=== PATIENT | female | born 1940 | race Caucasian/White ===

== ENCOUNTER 2022-09-20 10:29 | Inpatient (IN) | payer MEDICARE, BC ==
[2022-09-20] MEDS: Sodium Chloride 0.9% 1,000 ML IV SCH ×2 (10:40→17:52)
[2022-09-20] MEDS ORDERED: Ondansetron 4 MG/2 ML SDV IVPUSH ONE (10:43)
[2022-09-20 11:32] LABS: ANION GAP 15.6 mmol/L (5-15)
[2022-09-20] MEDS ORDERED: REMDESIVIR 200 MG in Sodium Chloride 0.9% 250 ML IV ONE (12:39)
[2022-09-20] MEDS ORDERED: Sodium Chloride 0.9% 1,000 ML IV SCH (13:00)
[2022-09-20] MEDS ORDERED: Magnesium Oxide 400 MG Tab PO ONE (13:07)
[2022-09-20] MEDS: Albuterol HFA 18 Gm Inhaler INH SCH ×3 (15:14→20:14)
[2022-09-20] MEDS: dexAMETHasone 2 MG, dexAMETHasone 4 MG PO SCH ×2 (15:18)
[2022-09-20] MEDS: Nystatin Crm 30 GM Tube TOP SCH ×2 (15:19→20:14)
[2022-09-20] MEDS: Ondansetron 4 MG/2 ML SDV IV PRN ×2 (16:25→22:28)
[2022-09-20] MEDS: Enoxaparin 40 MG/0.4 ML Syringe SUBCUT SCH (20:14)
[2022-09-20] MEDS: Acetaminophen 325 MG Tab PO PRN (22:40)
[2022-09-21] MEDS: Levothyroxine 88 MCG Tab PO SCH (06:02)
[2022-09-21] MEDS: Ondansetron 4 MG/2 ML SDV IV PRN (08:39)
[2022-09-21] MEDS: Losartan 25 MG Tab PO SCH (08:40)
[2022-09-21] MEDS: dexAMETHasone 2 MG, dexAMETHasone 4 MG PO SCH ×2 (08:40)
[2022-09-21] MEDS: Nystatin Crm 30 GM Tube TOP SCH ×2 (08:41→20:18)
[2022-09-21] MEDS: Albuterol HFA 18 Gm Inhaler INH SCH ×4 (08:42→20:19)
[2022-09-21 08:43] LABS: ANION GAP 13.1 mmol/L (5-15)
[2022-09-21] MEDS: Sodium Chloride 0.9% 1,000 ML IV SCH (10:11)
[2022-09-21] MEDS: REMDESIVIR 100 MG in Sodium Chloride 0.9% 100 ML IV SCH (12:37)
[2022-09-21] MEDS: Enoxaparin 40 MG/0.4 ML Syringe SUBCUT SCH (20:17)
[2022-09-21] MEDS: Acetaminophen 325 MG Tab PO PRN (23:28)
[2022-09-22] MEDS: Sodium Chloride 0.9% 1,000 ML IV SCH (05:54)
[2022-09-22] MEDS: Levothyroxine 88 MCG Tab PO SCH (06:00)
[2022-09-22] MEDS ORDERED: Bisacodyl 5 MG Tab PO PRN (08:12)
[2022-09-22] MEDS: dexAMETHasone 2 MG, dexAMETHasone 4 MG PO SCH ×2 (08:23)
[2022-09-22] MEDS: Ondansetron 4 MG/2 ML SDV IV PRN (08:23)
[2022-09-22] MEDS: Losartan 25 MG Tab PO SCH (08:24)
[2022-09-22] MEDS: Acetaminophen 325 MG Tab PO PRN ×2 (08:29→20:56)
[2022-09-22] MEDS: Nystatin Crm 30 GM Tube TOP SCH ×2 (08:36→20:58)
[2022-09-22] MEDS: Albuterol HFA 18 Gm Inhaler INH SCH ×4 (08:36→20:58)
[2022-09-22] MEDS ORDERED: Furosemide 20 MG/2 ML VIAL IV ONE (09:45)
[2022-09-22] MEDS: REMDESIVIR 100 MG in Sodium Chloride 0.9% 100 ML IV SCH (13:32)
[2022-09-22] MEDS: Omeprazole 20 MG Cap.CR PO SCH (16:37)
[2022-09-22] MEDS: Enoxaparin 40 MG/0.4 ML Syringe SUBCUT SCH (20:55)
[2022-09-23] MEDS: Acetaminophen 325 MG Tab PO PRN ×3 (03:16→20:41)
[2022-09-23] MEDS: Omeprazole 20 MG Cap.CR PO SCH ×2 (06:16→18:27)
[2022-09-23] MEDS: Levothyroxine 88 MCG Tab PO SCH (06:16)
[2022-09-23 07:22] LABS: ANION GAP 11.6 mmol/L (5-15)
[2022-09-23] MEDS: Losartan 25 MG Tab PO SCH (09:26)
[2022-09-23] MEDS: dexAMETHasone 2 MG, dexAMETHasone 4 MG PO SCH ×2 (09:26)
[2022-09-23] MEDS: Albuterol HFA 18 Gm Inhaler INH SCH ×4 (09:27→20:45)
[2022-09-23] MEDS: Nystatin Crm 30 GM Tube TOP SCH ×2 (09:27→20:44)
[2022-09-23] MEDS: REMDESIVIR 100 MG in Sodium Chloride 0.9% 100 ML IV SCH (12:29)
[2022-09-23] MEDS: Enoxaparin 40 MG/0.4 ML Syringe SUBCUT SCH (20:41)
[2022-09-23] MEDS: Sodium Chloride 0.9% 10 ML Syringe FLUSH PRN (20:43)
[2022-09-24] MEDS: Levothyroxine 88 MCG Tab PO SCH (06:05)
[2022-09-24] MEDS: Acetaminophen 325 MG Tab PO PRN ×3 (06:07→20:33)
[2022-09-24] MEDS: Omeprazole 20 MG Cap.CR PO SCH ×2 (06:10→17:02)
[2022-09-24 07:25] LABS: CHLORIDE,CL 103 mmol/L (98-107); SODIUM,NA 140 mmol/L (136-145)
[2022-09-24 07:30] LABS: ANION GAP 10.7 mmol/L (5-15); ESTIMATED GFR 86 mL/min (>=60)
[2022-09-24] MEDS: dexAMETHasone 2 MG, dexAMETHasone 4 MG PO SCH ×2 (09:29)
[2022-09-24] MEDS: Polyethylene Glycol 3350 Powder 17 GM Packet PO SCH (09:29)
[2022-09-24] MEDS: Losartan 25 MG Tab PO SCH (09:31)
[2022-09-24] MEDS: Nystatin Crm 30 GM Tube TOP SCH ×2 (09:34→20:35)
[2022-09-24] MEDS: Albuterol HFA 18 Gm Inhaler INH SCH ×4 (09:35→20:35)
[2022-09-24] MEDS: REMDESIVIR 100 MG in Sodium Chloride 0.9% 100 ML IV SCH (12:37)
[2022-09-24] MEDS: Enoxaparin 40 MG/0.4 ML Syringe SUBCUT SCH (20:33)
[2022-09-24] MEDS: Sodium Chloride 0.9% 10 ML Syringe FLUSH PRN (20:33)
[2022-09-25] MEDS: Levothyroxine 88 MCG Tab PO SCH (06:05)
[2022-09-25] MEDS: Omeprazole 20 MG Cap.CR PO SCH (06:05)
[2022-09-25 07:40] LABS: ANION GAP 12.9 mmol/L (5-15)
[2022-09-25] MEDS: dexAMETHasone 2 MG, dexAMETHasone 4 MG PO SCH ×2 (08:08)
[2022-09-25] MEDS: Losartan 25 MG Tab PO SCH (08:08)
[2022-09-25] MEDS: Polyethylene Glycol 3350 Powder 17 GM Packet PO SCH (08:09)
[2022-09-25] MEDS: Nystatin Crm 30 GM Tube TOP SCH (08:12)
[2022-09-25] MEDS: Albuterol HFA 18 Gm Inhaler INH SCH (08:13)
[2022-09-25] MEDS: Acetaminophen 325 MG Tab PO PRN (08:20)
== END 2022-09-25 12:09 | disposition swing bed (61) | DRG 177 ==
LOC: VM.ED 10:29 → VM.MS 12:04
PROVIDERS: ADMIT Family Medicine; ATTEND Family Medicine
PROC: XW033E5 Introduction of Remdesivir Anti-infective into Peripheral Vein, Percutaneous Approach, New Technology Group 5 (ICD-10-PCS; principal; 2022-09-20)
PROC: 3E0DX3Z Introduction of Anti-inflammatory into Mouth and Pharynx, External Approach (ICD-10-PCS; 2022-09-20)
DX: U07.1 COVID-19 (principal); J12.9 Viral pneumonia, unspecified; J18.9 Pneumonia, unspecified organism; J96.01 Acute respiratory failure with hypoxia; I10 Essential (primary) hypertension; E03.9 Hypothyroidism, unspecified; Z66 Do not resuscitate; E83.42 Hypomagnesemia; M79.10 Myalgia, unspecified site; K59.00 Constipation, unspecified; L30.9 Dermatitis, unspecified; J44.9 Chronic obstructive pulmonary disease, unspecified; F41.9 Anxiety disorder, unspecified; E78.00 Pure hypercholesterolemia, unspecified; M19.90 Unspecified osteoarthritis, unspecified site; Z88.8 Allergy status to other drugs, medicaments and biological substances; Z79.890 Hormone replacement therapy; Z98.1 Arthrodesis status; Z98.41 Cataract extraction status, right eye; Z98.42 Cataract extraction status, left eye; Z90.710 Acquired absence of both cervix and uterus; Z90.89 Acquired absence of other organs; Z87.891 Personal history of nicotine dependence
CPT/HCPCS: 36415; 80053; 81001; 81003; 82550; 83605; 83615; 83735; 84484; 85025; 85379; 86140; 87086; 95851-GO; 96374; 97110-GP; 97116-GP; 97162-GP; 97165-GO; 97530-GP; 97535-GO; 99284; 99285-25; A9270-GY; J1650; J1940; J2405; J3490; J7030; J7050; J8540

== ENCOUNTER 2022-09-24 08:13 | Inpatient (IN) | payer MEDICARE, BC ==
[2022-09-25] MEDS ORDERED: Albuterol HFA 18 Gm Inhaler INH PRN (13:15)
[2022-09-25] MEDS: Omeprazole 20 MG Cap.CR PO SCH (19:22)
[2022-09-25] MEDS: Acetaminophen 325 MG Tab PO PRN (20:46)
[2022-09-26] MEDS: Omeprazole 20 MG Cap.CR PO SCH ×2 (05:59→18:20)
[2022-09-26] MEDS: Acetaminophen 325 MG Tab PO PRN ×2 (06:03→20:42)
[2022-09-26] MEDS: Losartan 25 MG Tab PO SCH (10:44)
[2022-09-26] MEDS: dexAMETHasone 2 MG, dexAMETHasone 4 MG PO SCH ×2 (10:44)
[2022-09-26] MEDS: Enoxaparin 40 MG/0.4 ML Syringe SUBCUT SCH (10:45)
[2022-09-26] MEDS: Levothyroxine 88 MCG Tab PO SCH (10:45)
[2022-09-26] MEDS: Polyethylene Glycol 3350 Powder 17 GM Packet PO SCH (10:46)
[2022-09-27] MEDS: Acetaminophen 325 MG Tab PO PRN ×3 (06:10→21:00)
[2022-09-27] MEDS: Omeprazole 20 MG Cap.CR PO SCH ×2 (06:10→17:14)
[2022-09-27] MEDS: Losartan 25 MG Tab PO SCH (08:36)
[2022-09-27] MEDS: dexAMETHasone 2 MG, dexAMETHasone 4 MG PO SCH ×2 (08:37)
[2022-09-27] MEDS: Polyethylene Glycol 3350 Powder 17 GM Packet PO SCH (08:37)
[2022-09-27] MEDS: Levothyroxine 88 MCG Tab PO SCH (08:37)
[2022-09-27] MEDS: Enoxaparin 40 MG/0.4 ML Syringe SUBCUT SCH (08:44)
[2022-09-28] MEDS: Omeprazole 20 MG Cap.CR PO SCH ×2 (06:06→17:57)
[2022-09-28] MEDS: Acetaminophen 325 MG Tab PO PRN ×2 (06:06→20:24)
[2022-09-28] MEDS: Levothyroxine 88 MCG Tab PO SCH (09:15)
[2022-09-28] MEDS: dexAMETHasone 2 MG, dexAMETHasone 4 MG PO SCH ×2 (09:16)
[2022-09-28] MEDS: Losartan 25 MG Tab PO SCH (09:16)
[2022-09-28] MEDS: Enoxaparin 40 MG/0.4 ML Syringe SUBCUT SCH (09:16)
[2022-09-28] MEDS: Polyethylene Glycol 3350 Powder 17 GM Packet PO SCH (09:17)
[2022-09-29] MEDS: Omeprazole 20 MG Cap.CR PO SCH (06:31)
[2022-09-29] MEDS: Enoxaparin 40 MG/0.4 ML Syringe SUBCUT SCH (08:46)
[2022-09-29] MEDS: Polyethylene Glycol 3350 Powder 17 GM Packet PO SCH (08:46)
[2022-09-29] MEDS: dexAMETHasone 2 MG, dexAMETHasone 4 MG PO SCH ×2 (08:48)
[2022-09-29] MEDS: Levothyroxine 88 MCG Tab PO SCH (08:49)
[2022-09-29] MEDS: Losartan 25 MG Tab PO SCH (08:50)
== END 2022-09-29 14:30 | disposition home health service (06) | DRG 947 ==
LOC: VM.MS 09-25 12:15
PROVIDERS: ADMIT Family Medicine; ATTEND Family Medicine
DX: R53.1 Weakness (principal); J96.01 Acute respiratory failure with hypoxia; I10 Essential (primary) hypertension; E03.9 Hypothyroidism, unspecified; J44.9 Chronic obstructive pulmonary disease, unspecified; M19.90 Unspecified osteoarthritis, unspecified site; K59.00 Constipation, unspecified; Z79.890 Hormone replacement therapy; Z79.899 Other long term (current) drug therapy; U09.9 Post COVID-19 condition, unspecified
CPT/HCPCS: 95851-GO; 97110-GP; 97116-GP; 97129-GO; 97164-GP; 97535-GO; A9270-GY; J1650; J8540

== ENCOUNTER 2022-10-01 17:51 | Emergency (ER) | payer MEDICARE, BC | END 2022-10-01 18:21 | disposition home or self-care (01) | LOC: VM.ED 17:51 | DX: U07.1 COVID-19 (principal); J44.9 Chronic obstructive pulmonary disease, unspecified; Z88.8 Allergy status to other drugs, medicaments and biological substances; Z79.899 Other long term (current) drug therapy | CPT/HCPCS: 99283 ==

== ENCOUNTER 2024-08-14 23:50 | Emergency (ER) | payer MEDICARE, BC ==
[2024-08-14] MEDS ORDERED: Sodium Chloride 0.9% 10 ML Syringe FLUSH PRN (23:56)
[2024-08-15] MEDS: Ondansetron 4 MG/2 ML SDV IVPUSH ONE (00:05)
[2024-08-15] MEDS: Lactated Ringers 1,000 ML IV ONE ×2 (00:05→01:54)
[2024-08-15 00:07] LABS: BASOPHILS PERCENT AUTO 0.2 % (0.2-1.2); EOSINOPHILS PERCENT AUTO 0.1 % (0.0-4.0); HEMATOCRIT 49.5 % (33.0-47.0); HEMOGLOBIN 16.4 g/dL (12.0-16.0); IMMATURE GRAN ABSOLUTE AUTO 0.02 x10^3/uL (0.00-0.07); LYMPHOCYTES ABSOLUTE AUTO 0.7 x10^3/uL (1.0-4.8); LYMPHOCYTES PERCENT AUTO 4.7 % (25.0-50.0); MEAN CORPUSCULAR HEMOGLOBIN 29.4 pg (26.0-32.0); MEAN CORPUSCULAR HGB CONC 33.1 g/dL (32.0-36.0); MEAN CORPUSCULAR VOLUME 88.9 fL (78.0-93.0); MONOCYTES PERCENT AUTO 6.5 % (2.0-11.0); NEUTROPHILS ABSOLUTE AUTO 13.1 x10^3/uL (1.8-7.7); NEUTROPHILS PERCENT AUTO 88.4 % (50.0-80.0); PLATELET COUNT,PLT 164 x10^3/uL (130-400); RED BLOOD CELL COUNT 5.57 x10^6/uL (4.00-5.50); WHITE BLOOD CELL COUNT,WBC 14.9 x10^3/uL (4.0-10.0)
[2024-08-15 00:20] LABS: HCO3 VENOUS,POC 26 mmol/L (22-29); O2 SATURATION VENOUS,POC 61 %; PCO2 VENOUS,POC 46 mmHg (41-51); PH VENOUS,POC 7.36 pH (7.32-7.43); PO2 VENOUS,POC 34 mmHg
[2024-08-15 00:29] LABS: LACTIC ACID 2.4 mmol/L (0.4-2.0)
[2024-08-15] MEDS: HYDROmorphone 0.5 MG/0.5 ML Syringe IVPUSH ONE (00:31)
[2024-08-15 00:36] LABS: PROTHROMBIN TIME 10.5 SEC (8.9-11.5); PTT,PARTIAL THROMBOPLSTIN TIME 26.8 SEC (21.9-33.8)
[2024-08-15 00:37] LABS: A/G RATIO 1.27; ALANINE AMINOTRANSFERASE,ALT 54 U/L (14-59); ALBUMIN 4.2 g/dL (3.4-5.0); ALKALINE PHOSPHATASE 102 U/L (46-116); ASPARTATE AMNIOTRANSFERASE,AST 177 U/L (15-37); BLOOD UREA NITROGEN,BUN 19 mg/dL (7-18); C-REACTIVE PROTEIN 0.87 mg/dL (<=0.50); CALCIUM 9.5 mg/dL (8.5-10.1); CARBON DIOXIDE,CO2 28 mmol/L (21-32); CHLORIDE,CL 104 mmol/L (98-107); CREATININE 1.1 mg/dL (0.55-1.02); EST CRCL DRUG DOSING (CG) 33.65 mL/min; GLUCOSE RANDOM 134 mg/dL (70-99); MAGNESIUM 1.7 mg/dL (1.8-2.4); POTASSIUM,K 3.9 mmol/L (3.5-5.1); PROTEIN TOTAL,TP 7.5 g/dL (6.4-8.2); SODIUM,NA 142 mmol/L (136-145); TSH ULTRASENSITIVE 1.108 uIU/mL (0.358-3.74)
[2024-08-15 00:39] LABS: ANION GAP 13.9 mmol/L (5-15); ESTIMATED GFR 49 mL/min (>=60); ETHANOL BLOOD MEDICAL < 3 mg/dL (0-3)
[2024-08-15 01:05] LABS: CREATINE KINASE,CK 8380 U/L (26-192)
[2024-08-15 01:11] LABS: AMPHETAMINES SCREEN, URINE NEGATIVE (NEGATIVE); BARBITURATE SCREEN,URINE NEGATIVE (NEGATIVE); BENZODIAZEPINES SCREEN,URINE NEGATIVE (NEGATIVE); BUPRENORPHINE SCREEN,URINE NEGATIVE (NEGATIVE); COCAINE METABOLITES,URINE NEGATIVE (NEGATIVE); METHADONE SCREEN, URINE NEGATIVE (NEGATIVE); METHAMPHETAMINE SCREEN, URINE NEGATIVE (NEGATIVE); OXYCODONE SCREEN,URINE NEGATIVE (NEGATIVE); PCP SCREEN,URINE NEGATIVE (NEGATIVE); THC SCREEN,URINE 50 NG/ML NEGATIVE (NEGATIVE)
[2024-08-15] MEDS: cefTRIAXone 1 GM Vial IVPUSH ONE (01:11)
[2024-08-15 01:15] LABS: BILIRUBIN,URINE SMALL (NEGATIVE); COLOR,URINE YELLOW (YELLOW); GLUCOSE,URINE NEGATIVE (NEGATIVE); KETONES,URINE 40 mg/dL (NEGATIVE); LEUKOCYTE ESTERASE,URINE NEGATIVE (NEGATIVE); NITRITE,URINE NEGATIVE (NEGATIVE); OCCULT BLOOD,URINE MODERATE (NEGATIVE); PH,URINE 6.5 (5.0-8.0); PROTEIN,URINE >=300 mg/dL (NEGATIVE); UROBILINOGEN,URINE 0.2 EU/dL (0.2)
[2024-08-15 01:16] LABS: APPEARANCE,URINE SLIGHTLY CLOUDY (CLEAR); BACTERIA,URINE OCCASIONAL /HPF (NOT SEEN); GRANULAR CASTS,URINE FEW; HYALINE CASTS,URINE FEW; MUCUS,URINE FEW /LPF (NOT SEEN); RBC,URINE 20-30 /HPF (NOT SEEN); SQUAMOUS EPITHELIAL CELLS,UR FEW /HPF (NOT SEEN); WBC,URINE 0-5 /HPF (NOT SEEN)
[2024-08-15] MEDS: Aspirin 81 MG Tab.Chew PO ONE (01:54)
[2024-08-15] MEDS: Azithromycin 500 MG in Sodium Chloride 0.9% 250 ML IV ONE (02:16)
[2024-08-15] MEDS: Heparin Sodium/0.45% NaCl 25,000 UNITS/500 ML BAG IV STA (02:26)
[2024-08-15] MEDS: Heparin Sodium 5,000 Units/ML Vial IVPUSH ONE (02:26)
== END 2024-08-15 03:00 | disposition short-term general hospital (02) ==
LOC: VM.ED 23:50
DX: I21.4 Non-ST elevation (NSTEMI) myocardial infarction (principal); J18.9 Pneumonia, unspecified organism; S00.81XA Abrasion of other part of head, initial encounter; M62.82 Rhabdomyolysis; E78.00 Pure hypercholesterolemia, unspecified; E03.9 Hypothyroidism, unspecified; I10 Essential (primary) hypertension; J44.9 Chronic obstructive pulmonary disease, unspecified; Z88.8 Allergy status to other drugs, medicaments and biological substances; Z79.890 Hormone replacement therapy; Z79.899 Other long term (current) drug therapy; W19.XXXA Unspecified fall, initial encounter
CPT/HCPCS: 70450; 71045; 72020; 72125; 72170; 80053; 80305-QW; 80307; 81001; 82140; 82550; 82803; 83605; 83735; 84443; 84484; 85025; 85610; 85730; 86140; 87040; 93005; 93010; 96361; 96365; 96368; 96375; 99284; 99285-25; A9270-GY; J0456; J0696; J1170; J1644; J2405; J7050; J7120

== ENCOUNTER 2025-04-26 17:19 | Emergency (ER) | payer MEDICARE, BC ==
[2025-04-26 17:49] LABS: BASOPHILS PERCENT AUTO 0.5 % (0.2-1.2); EOSINOPHILS ABSOLUTE AUTO 0.4 x10^3/uL (0.0-0.5); EOSINOPHILS PERCENT AUTO 5.4 % (0.0-4.0); HEMATOCRIT 45.9 % (33.0-47.0); IMMATURE GRAN ABSOLUTE AUTO 0.01 x10^3/uL (0.00-0.07); LYMPHOCYTES ABSOLUTE AUTO 1.6 x10^3/uL (1.0-4.8); LYMPHOCYTES PERCENT AUTO 24.8 % (25.0-50.0); MEAN CORPUSCULAR HEMOGLOBIN 29.2 pg (26.0-32.0); MEAN CORPUSCULAR HGB CONC 32.7 g/dL (32.0-36.0); MEAN CORPUSCULAR VOLUME 89.5 fL (78.0-93.0); MONOCYTES ABSOLUTE AUTO 0.6 x10^3/uL (0.0-0.8); MONOCYTES PERCENT AUTO 9.3 % (2.0-11.0); NEUTROPHILS ABSOLUTE AUTO 3.9 x10^3/uL (1.8-7.7); NEUTROPHILS PERCENT AUTO 59.8 % (50.0-80.0); PLATELET COUNT,PLT 162 x10^3/uL (130-400); RED BLOOD CELL COUNT 5.13 x10^6/uL (4.00-5.50); WHITE BLOOD CELL COUNT,WBC 6.5 x10^3/uL (4.0-10.0)
[2025-04-26] MEDS: Sodium Chloride 0.9% 500 ML IV ONE (17:52)
[2025-04-26] MEDS: Meclizine 25 MG Tab PO ONE (17:53)
[2025-04-26 18:00] LABS: A/G RATIO 1.33; ALANINE AMINOTRANSFERASE,ALT 18 U/L (14-59); ALKALINE PHOSPHATASE 109 U/L (46-116); ASPARTATE AMNIOTRANSFERASE,AST 20 U/L (15-37); BILIRUBIN TOTAL 0.7 mg/dL (0.2-1.0); BLOOD UREA NITROGEN,BUN 17 mg/dL (7-18); CALCIUM 9.1 mg/dL (8.5-10.1); CARBON DIOXIDE,CO2 29 mmol/L (21-32); CHLORIDE,CL 103 mmol/L (98-107); CREATININE 0.9 mg/dL (0.55-1.02); GLUCOSE RANDOM 107 mg/dL (70-99); POTASSIUM,K 3.5 mmol/L (3.5-5.1); SODIUM,NA 143 mmol/L (136-145)
[2025-04-26 18:02] LABS: ANION GAP 14.5 mmol/L (5-15); ESTIMATED GFR 63 mL/min (>=60)
[2025-04-26] MEDS: diazePAM 10 MG/2 ML Syringe IVPUSH ONE (18:27)
[2025-04-26] MEDS ORDERED: diazePAM 10 MG/2 ML Syringe IV PRN (19:34)
[2025-04-26] MEDS: Ondansetron 4 MG/2 ML SDV IVPUSH ONE (20:05)
[2025-04-26] MEDS: Take Home: Ondansetron 4 MG Tab.DIS, 5 Tab Pack PO ONE (20:06)
== END 2025-04-26 20:05 | disposition home or self-care (01) ==
LOC: VM.ED 17:19
DX: H81.10 Benign paroxysmal vertigo, unspecified ear (principal); E78.00 Pure hypercholesterolemia, unspecified; J44.9 Chronic obstructive pulmonary disease, unspecified; E03.9 Hypothyroidism, unspecified; Z79.899 Other long term (current) drug therapy; Z79.890 Hormone replacement therapy; Z88.8 Allergy status to other drugs, medicaments and biological substances
CPT/HCPCS: 36415; 71045; 80053; 84484; 85025; 93005; 93010; 96361; 96374; 96375; 99284; 99285-25; A9270-GY; J2405; J3360; J7030; Q0162